=== PATIENT | female | born 1990 | race Caucasian/White ===

== ENCOUNTER 2018-03-29 15:31 | Emergency (ER) | payer OTHER ==
[~2018-03-29 15:31] MED LIST: AGM875T PO; CEPH-507 PO; CIPR500T78 PO; CYCL10TA9 PO; DEPO SHOT; HYDR-1231 PO; PHEN100T26 PO; PRED20TA PO
== END 2018-03-29 15:52 | disposition left against medical advice (07) ==
LOC: EDUNIT# 15:31 → ER 15:32
DX: M54.9 Dorsalgia, unspecified (principal)